=== PATIENT | female | born 1985 | race African-American/Black ===

== ENCOUNTER 2016-07-29 10:20 | Emergency (ER) | payer OTHER ==
[~2016-07-29] VITALS: Ht 170.2 cm; Wt 74.4 kg
[2016-07-29 10:25] VITALS: BP 102/69
--- NOTE | 2016-07-29 10:53 | ED THROAT/DENTAL COMPLAINT ---
History of Present Illness General Chief Complaint: Upper Respiratory Sx/Fever Stated Complaint: URI 2 DYS Source: patient, old records Exam Limitations: no limitations Vital Signs & Intake/Output Vital Signs & Intake/Output Vital Signs Date Time Temp Pulse Resp B/P B/P Pulse O2 O2 Flow FiO2 Mean Ox Delivery Rate 07/29 1025 98.0 96 20 102/69 98 Room Air Allergies Coded Allergies: amoxicillin (RASH 09/29/15) Reconcile Medications Azithromycin (Zithromax) 250 MG TABLET 1 DP PO AD URI 2 the first day followed by 1 for days 2-5 Mometasone Furoate (Nasonex) 50 MCG SPRAY.PUMP 2 SPRAY NASB DAILY RHINTIIS Triage Note: 31 YO FEMALE TO TRIAGE C/O SORE THROAT AND HEAD/CHEST CONGESTION X1 WEEK. PT IS [address] MIGUEL. Triage Nurses Notes Reviewed? yes Onset: Gradual Duration: week(s): (1), constant Timing: recent history Injury Environment: home Severity: mild Severity Numbers: 5 No Modifying Factors: none Associated Symptoms: cough, CONGESTION : Yes Patient currently breastfeeds: No HPI: 31-year-old female 23 weeks presents to the ER complaining of a one- week history gradual in onset rhinorrhea congestion sore throat, nonproductive cough. She denies any Occasions to this no vaginal bleeding or discharge no nausea vomiting or diarrhea. She is not taken anything for her symptoms. No fever no chills no sick contacts recent travel no rashes to her skin. She does not smoke no history of asthma. No modifying factors or associated symptoms otherwise. OB is dr combs (BECCA ASTUDILLO) Past History Travel History Traveled to [place] past 21 day No Medical History Any Pertinent Medical History? 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 No (BECCA ASTUDILLO) Review of Systems Review of Systems Constitutional: Reports: no symptoms, see HPI. All Other Systems: Reviewed and Negative Comments Review of systems: See HPI, All other systems negative. Constitutional, no chills no fever, no malaise HEENT: No visual changes sore throat congestion, ear pain Cardiovascular: No chest pain , no palpitation Skin: no rashes, no change in skin Respiratory: No dyspnea no cough no sputum GI: No nausea no vomiting, no diarrhea, no bloating/constipation : No dysuria Muscle skeletal: No joint pain, no back pain, no neck pain, Neurologic: No numbness nno headache Psych: No stress Heme/endocrine: No bruising Immunology: No lymphadenopathy (BECCA ASTUDILLO) Physical Exam Physical Exam General Appearance: well developed/nourished, no apparent distress Mouth/Throat: normal mouth inspection, pharynx normal Comments: Well-developed well-nourished patient in no apparent distress. Head/Face: Atraumatic, no maxillary/frontal sinus tenderness, no facial swelling Eyes: PERRL, EOMI, no conjunctival injection. No nystagmus Ear:External auditory canal and Tympanic membranes clear, no erythema, no FB. Nose: atraumatic.Normal inspection: No bleeding, no septal hematoma Throat: Moist mucous membranes.Pharynx normal. No pharyngeal erythema/exudate seen. No stridor/drooling or assymetry. No swelling or edema. Neck: Supple, no lymphadenopathy, FROM Back: FROM Cardiovascular: Regular rate and rhythms no murmurs rubs Respiratory: Chest nontender.There were no bony deformities, no asymmetry. No respiratory distress. Patient speaking in full complete sentences. Breath sounds clear to auscultation bilaterally: NO W/R/R Extremities: full range of motion Neuro: awake, alert, and oriented to person, place and time. There were no obvious focal neurologic abnormalities. Skin: Warm & dry;No appreciable rash on exposed skin Psych: Mood affect normal, normal memory normal judgment. Core Measures ACS in differential dx? No Severe Sepsis Present: No Septic Shock Present: No (BECCA ASTUDILLO) Progress Differential Diagnosis: odontogenic abscess, claudia-tonsillar abscess, strep pharyngitis, otitis, sinusitis, allergic rhintisi, ur Plan of Care: Orders Procedure Date/time Status THROAT CULTURE W/QUICK STREP 07/29 1027 Active I discussed with the patient at length all of their results. I had an extensive conversation regarding need for close follow up with their primary care physician this week as well as return precautions. I answered all of their questions, they feel comfortable with the plan and follow-up care. I discussed with the patient/family the medications that they will receive. I gave them signs and symptoms that could indicate an adverse reaction. I have advised them to limit their activities until they can see how they respond to the medication. (BECCA ASTUDILLO) Departure Departure Time of Disposition: 1105 Disposition: HOME OR SELF CARE Condition: Stable Clinical Impression Primary Impression: URI (upper respiratory infection) Referrals: PATIENT HAS NO PRIMARY CARE DR (PCP/Family) Additional Instructions: FOLLOW UP WITH YOUR PMD THIS WEEK. ZPAK AND NASONEX SPRAY DIRECTED.THESE WERE SENT TO [facility]. TYLENOL FOR PAIN,DRINK PLENTY OFFLUIDS. 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 I have also reviewed all the pertinent lab results and diagnostic results. I agree with the findings and the plan of care as documented in the PA's/ELECTRONIC SCIENCE TEACHER's documentation. x I have reviewed the ED Record and agree with the PA's/ELECTRONIC SCIENCE TEACHER's documentation. [] Additions or exceptions (if any) to the PAs/ELECTRONIC SCIENCE TEACHER's note and plan are summarized below: [] (KARLIE JAMIL,BO)
[2016-07-29] MEDS ORDERED: NASONEX17 GM NASB (11:08)
[2016-07-29] MEDS ORDERED: ZITHROMAX250 M2 PO (11:08)
== END 2016-07-29 11:23 ==
LOC: ERH 10:20
DX: J06.9 Acute upper respiratory infection, unspecified (principal)